=== PATIENT | male | born 1995 | race Caucasian/White ===

== ENCOUNTER 2016-09-30 17:29 | Emergency (ER) | payer BC, OTHER ==
[2016-09-30] MEDS ORDERED: ACETAMINOPHEN 325 MG TABLET ONE (18:19)
[2016-09-30] MEDS ORDERED: IBUPROFEN 600 MG TABLET ONE (18:19)
[2016-09-30] MEDS ORDERED: OXYMETAZOLINE HCL 0.05% 30 SPRAYS/BOT NS ONE (18:19)
== END 2016-09-30 18:39 | disposition home or self-care (01) ==
LOC: ED 17:29
DX: J06.9 Acute upper respiratory infection, unspecified (principal)
CPT/HCPCS: 99283 ×2; A9270 ×3

== ENCOUNTER 2016-10-02 20:51 | Emergency (ER) | payer BC, OTHER ==
[2016-10-02] MEDS ORDERED: SODIUM CHLORIDE 0.9% 1,000 ML ONE (22:01)
[2016-10-02] MEDS ORDERED: DIPHENHYDRAMINE HCL 50 MG/1 ML VIAL ONE (22:01)
[2016-10-02 22:09] LABS: ALB/GLOB RATIO 1.1 (>1.0); ALBUMIN 4.3 gm/dL (3.5-5.7); ALT/SGPT 11 U/L (7-52); BLOOD UREA NITROGEN 10 mg/dL (7-25); BUN/CREATININE RATIO 13 (6-20)
[2016-10-02 22:15] LABS: ABSOLUTE NEUTROPHIL COUNT 9.8 K/mm3 (1.8-7.7); BASO % 0.3 % (0.2-1.0); EOS % 0.2 % (0.9-2.9); HEMOGLOBIN 15.5 gm/l (14.0-18.0); IMM NEUT # 0.1 K/mm3 (0-0.2); IMM NEUT% 0.5 % (0-1); LYMPH # 2.8 (1.0-4.8); LYMPH % 20.1 % (15-45); MEAN CELL VOLUME 88.6 fl (80.0-94.0); MEAN CORPUSCULAR HEMOGLOBIN 30.5 pg (27.0-31.0); MEAN CORPUSCULAR HGB CONC 34.4 g/dl (33.0-37.0); MEAN PLATELET VOLUME 8.8 fl (7.4-10.4); MONO % 7.5 % (4-12); NEUT % 71.4 % (43-75); PLATELET COUNT 380 K/mm3 (130-400); RED CELL DISTRIBUTION WIDTH 13.2 % (11.5-14.5)
[2016-10-02] MEDS ORDERED: KETOROLAC TROMETHAMINE 15 MG/ML VIAL ONE (23:26)
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
== END 2016-10-03 02:56 | disposition home or self-care (01) ==
LOC: ED 20:51
DX: S01.01XA Laceration without foreign body of scalp, initial encounter (principal); S00.83XA Contusion of other part of head, initial encounter; S09.90XA Unspecified injury of head, initial encounter; F10.129 Alcohol abuse with intoxication, unspecified; Y90.8 Blood alcohol level of 240 mg/100 ml or more; W10.9XXA Fall (on) (from) unspecified stairs and steps, initial encounter; Y92.9 Unspecified place or not applicable
CPT/HCPCS: 85025; 80053; 80307; 72125; 70450; 70486; 96375; 99284; 96374; 99283; J1200; J1885; J7030